=== PATIENT | female | born 1950 | race Hispanic/Latino ===

== ENCOUNTER 2017-04-03 10:09 | Outpatient (CLI) | payer MEDICARE ==
--- NOTE | 2017-04-03 10:38 | XRay Report ---
Left knee: Knee pain. There is a total knee replacement. The femoral and tibial components appear well applied. No lucency is noted. There is good alignment. No swelling and no joint effusion. Impression: Joint replacement with no apparent complication.
== END 2017-04-03 10:10 | disposition home or self-care (01) ==
LOC: SPVIMAG 10:09
PROVIDERS: ATTEND Orthopaedic Surgery Sports Medicine
DX: M25.562 Pain in left knee (principal); Z96.652 Presence of left artificial knee joint